=== PATIENT | female | born 1970 | race Caucasian/White ===

== ENCOUNTER 2018-05-29 09:37 | Outpatient (REF) | payer BC, SELFPAY ==
--- NOTE | 2018-05-29 09:00 | PAPFT_PTH ---
PATIENT: ALAN BASHIR LOC: [facility] U#:[id number] AGE/SX: 47/F ROOM: RE05/29/[address]: JORGE Olivera : 1970 BED: DIS: 05/29/2018 SPEC #: [id number] RECD: 05/29/18 12:50 STATUS: MILANA ZUNIGA #: [id number] MARLENE: 05/29/18 09:[address]: Lauren Leung DEPT: [facility] Cytology RECD BY: Mabel Campuzano Tissues: 1 - CX/ENDOCX FOR PAP SMEARS Procedures: PAP THIN PREP/UVM Screening HPV DNA PROBE Comments: [id number]
== END 2018-05-29 09:57 ==
LOC: LBN 09:37
PROVIDERS: PCP Nurse Practitioner Family; Visit Provider Nurse Practitioner Family
DX: Z12.4 Encounter for screening for malignant neoplasm of cervix (principal); Z11.51 Encounter for screening for human papillomavirus (HPV)
CPT/HCPCS: 88142; 87624

== ENCOUNTER 2018-06-11 00:42 | Outpatient (CLI) | payer BC, SELFPAY ==
--- NOTE | 2018-06-11 09:24 | DI.MAMMO_ITS ---
SYMPTOM/DIAGNOSIS: BREAST CANCER SCREENING Z12.31 MAMMOGRAMS: Mammograms were interpreted according to the usual protocol including computer analysis with CAD system, tomosynthesis and C view imaging. Comparison with prior examinations. Breast density B. No suspicious microcalcifications are seen. No suspicious masses are seen in the right breast. There is asymmetric breast tissue in the outer left breast seen on the craniocaudad view. This area appears more prominent compared to the prior examination. Spot compression views are requested. Ultrasound may be indicated at that time. IMPRESSION: Additional views of the left breast as described above. Category 0 , B MQSA ASSESSMENT OF FINDINGS: Incomplete: Needs additional imaging evaluation. Category 0. Patient will receive a letter notifying them of these results. BI-RADS category B. There are scattered areas of fibroglandular density.
== END 2018-06-11 01:02 ==
PROVIDERS: PCP Nurse Practitioner Family; Visit Provider Nurse Practitioner Family
DX: Z12.31 Encounter for screening mammogram for malignant neoplasm of breast (principal); R92.8 Other abnormal and inconclusive findings on diagnostic imaging of breast
CPT/HCPCS: 77063; 77067

== ENCOUNTER 2018-06-24 00:22 | Outpatient (CLI) | payer BC, SELFPAY ==
--- NOTE | 2018-06-24 13:52 | DI.COMBO_ITS ---
SYMPTOMS/DIAGNOSIS: F/U MAMMO, ASYMMETRIC BREAST TISSUE LT ADDITIONAL VIEWS OF THE LEFT BREAST AND LEFT BREAST ULTRASOUND: Additional images are interpreted according to the usual protocol including tomosynthesis and 2D imaging. Additional views of the left breast again show an asymmetric density in the outer left breast. No associated microcalcifications are seen. No architectural distortion is appreciated. A left breast ultrasound was performed. The upper outer and lower outer quadrants of the left breast were evaluated sonographically. No cystic or solid masses are seen. IMPRESSION: No definite evidence for malignancy. At this time a six month follow up left mammogram is requested for re-evaluation. Category 3. Breast density B. The findings were discussed with the patient on the date of the examination. SA ASSESSMENT OF FINDINGS: Probably benign. Six month follow-up recommended. Category 3. Patient will receive a letter notifying them of these results. BI-RADS category B. There are scattered areas of fibroglandular density.
== END 2018-06-24 00:42 ==
PROVIDERS: PCP Nurse Practitioner Family; Visit Provider Nurse Practitioner Family
DX: Z12.31 Encounter for screening mammogram for malignant neoplasm of breast (principal); R92.8 Other abnormal and inconclusive findings on diagnostic imaging of breast; N60.82 Other benign mammary dysplasias of left breast
CPT/HCPCS: 76642; 77063; 77067

== ENCOUNTER 2018-12-24 00:43 | Outpatient (CLI) | payer BC, SELFPAY ==
--- NOTE | 2018-12-24 09:31 | DI.MAMMO_ITS ---
SYMPTOM/DIAGNOSIS: DIAGNOSTIC, 6 MO F/U LEFT MAMMOGRAM: Mammograms were interpreted according to the usual protocol including computer analysis with CAD system, tomosynthesis and C view imaging. Comparison is made with prior examinations. Breast density, category B. The breast tissue in the upper outer quadrant of the left breast appears stable. The skin and axilla are unremarkable. IMPRESSION: No evidence for malignancy. A 6 month follow up mammogram is requested for re-evaluation. Category 3. MQSA ASSESSMENT OF FINDINGS: Probably benign. Six month follow-up recommended. Category 3. Patient will receive a letter notifying them of these results. BI-RADS category B. There are scattered areas of fibroglandular density. The findings were discussed with the patient on the date of the examination. MQSA ASSESSMENT OF FINDINGS: Probably benign. Six month follow-up recommended. Category 3. Patient will receive a letter notifying them of these results. BI-RADS category B. There are scattered areas of fibroglandular density.
== END 2018-12-24 01:03 ==
PROVIDERS: PCP Nurse Practitioner Family; Visit Provider Nurse Practitioner Family
DX: Z12.31 Encounter for screening mammogram for malignant neoplasm of breast (principal); R92.8 Other abnormal and inconclusive findings on diagnostic imaging of breast; N64.59 Other signs and symptoms in breast
CPT/HCPCS: 77061; 77065; G0279

== ENCOUNTER 2019-03-10 09:27 | Outpatient (CLI) | payer BC, SELFPAY ==
--- NOTE | 2019-03-10 09:25 | DI.RAD_ITS ---
SYMPTOM/DIAGNOSIS: SHOULDER PAIN RIGHT SHOULDER: There is some spurring at the undersurface of the acromion. The glenohumeral joint is well maintained. No tendon or joint space calcifications are seen. The humeral head is normally positioned. IMPRESSION: Spurring at the undersurface of the acromion.
== END 2019-03-10 09:47 ==
PROVIDERS: PCP Nurse Practitioner Family; Visit Provider Student in an Organized Health Care Education/Training Program
DX: M25.511 Pain in right shoulder (principal); M75.81 Other shoulder lesions, right shoulder
CPT/HCPCS: 73030

== ENCOUNTER 2019-04-01 01:21 | Outpatient (CLI) | payer BC, SELFPAY ==
--- NOTE | 2019-04-01 09:07 | DI.MRI_ITS ---
SYMPTOM/DIAGNOSIS: RT SHOULDER PAIN, WEAKNESS, M25.511 RIGHT SHOULDER MRI: Routine noncontrast examination was performed. There is thickening and hyperintense signal seen on the T 2 weighed images within the supraspinatus tendon. There is also thickening and intermediate signal seen in the subscapularis tendon. The teres minor and infraspinatus tendons are unremarkable. The muscles show normal signal and size. No significant muscular fatty atrophy is seen. The biceps tendon has a normal appearance and location. The glenoid labrum is grossly unremarkable on this noncontrast examination. The articular cartilage at the glenohumeral joint appears well maintained. There are mild hypertrophic changes seen at the acromioclavicular joint suggestive of osteoarthritis. Marrow signal is otherwise within normal limits. No evidence of an occult fracture or avascular necrosis is seen. IMPRESSION: 1. Thickening and increased signal seen in the supraspinatus tendon. This may represent tendinosis or partial tear. 2. Thickening and intermediate signal seen in the subscapularis tendon suggesting degeneration/tendinosis.
== END 2019-04-01 01:41 ==
PROVIDERS: Visit Provider Student in an Organized Health Care Education/Training Program
DX: M25.511 Pain in right shoulder (principal); M75.81 Other shoulder lesions, right shoulder; M19.011 Primary osteoarthritis, right shoulder
CPT/HCPCS: 73221

== ENCOUNTER 2019-04-10 01:24 | Outpatient (CLI) | payer BC, SELFPAY ==
--- NOTE | 2019-04-10 08:04 | DI.RAD_ITS ---
SYMPTOM/DIAGNOSIS: BICEPS TENDINITIS RIGHT SHOULDER M75.21 FLUOROSCOPY RIGHT SHOULDER: Fluoroscopy Time: unknown Fluoroscopy was provided for Dr. Costa for guidance with right shoulder injection. The hard copy images shows a needle projecting over the humeral head and contrast injection in to the joint spce. Please see procedure note for details.
[2019-04-10] MEDS: Omnipaque 300 MG/ML 10 ML BTL IJ (10:00)
[2019-04-10] MEDS: Bupivacaine 0.5% Pres-Free 10 ML VIAL 5 ML IJ (10:01)
[2019-04-10] MEDS: methylPREDNISolone ACETATE 80 MG/ML VIAL IM (10:02)
--- NOTE | 2019-04-11 08:45 | OPPNE_ITS ---
Date of service: 04/10/19 Time of Service: 09:45 Procedure Note Date of procedure: 04/10/19 Procedure: Right Shoulder Injection Surgeon/Proceduralist/Physician: Ashwin Costa Procedure Diagnosis: Right Biceps Tendinitis, Right Partial RTC Tear Procedure Indications: Noemí has had persistent pain of the RIGHT shoulder. Noninvasive measures have been tried. To serve as both diagnostic and therapeutic, an injection under fluoroscopy was recommended. I had discussed the risks of the procedure and the patient elected to proceed. Procedure Description: Noemí was greeted in the flouroscopy room. The correct side was identified and the consent was reviewed with the patient and signed. The patient was then placed in the supine position on the fluoroscopy table. The RIGHT shoulder was then prepped with Chloraprep. The anterior injection starting point was identiifed by bony landmarks and fluoroscopy. The skin and soft tissue in the tract of the injection was anesthetized with 1% Lidocaine. A spinal needle was then inserted deep into the shoulder joint at the level of the recess between the glenoid and superior hum eral head. A small amount of Omnipaque solution was injected to confirm intraarticular placement. Once confirmed, the shoulder was injected with 4cc of 0.5% Bupivicaine and 80mg of Depo-Medrol. A bandaid was placed on the injection site. The patient tolerated the procedure well and noted improvement in pre- injection pain.
== END 2019-04-10 01:44 ==
PROVIDERS: PCP Nurse Practitioner Family; Visit Provider Student in an Organized Health Care Education/Training Program
DX: M75.21 Bicipital tendinitis, right shoulder (principal)
CPT/HCPCS: 20610; 77002; J1040

== ENCOUNTER 2019-05-30 07:00 | Outpatient (CLI) | payer BC, SELFPAY ==
[2019-05-30 13:00] LABS: Hemoglobin A1C 5.2 % (4.5-6.2)
[2019-05-30 13:16] LABS: ALT 36 U/L (14-59); AST 22 U/L (15-37); Albumin 4.4 g/dL (3.4-5.0); Alkaline Phosphatase 53 U/L (46-116); Anion Gap 8.8 mmol/L (3-11); BUN 16 mg/dL (7-18); Bilirubin, Total 0.4 mg/dL (0.2-1.0); CO2 30.2 mmol/L (21.0-32.0); CREATININE 0.78 mg/dL (0.55-1.02); Calcium 9.3 mg/dL (8.5-10.1); Calculated LDL 106 mg/dL; Chloride 99 mmol/L (98-107); Cholesterol 204 mg/dL (50-200); Glucose 89 mg/dL (70-100); HDL Cholesterol 40 mg/dL (40-60); Potassium 4.1 mmol/L (3.5-5.1); Sodium 138 mmol/L (136-145); Total Protein 7.8 g/dL (6.4-8.2); Triglyceride 292 mg/dL (30-150)
== END 2019-05-30 07:20 ==
PROVIDERS: PCP Nurse Practitioner Family; Visit Provider Nurse Practitioner Family
DX: E78.5 Hyperlipidemia, unspecified (principal)
CPT/HCPCS: 36415; 80053; 80061; 83036

== ENCOUNTER 2019-06-05 00:55 | Outpatient (CLI) | payer BC, SELFPAY ==
--- NOTE | 2019-06-05 12:55 | DI.US_ITS ---
EXAM: US PELVIS AND TRANSVAGINAL CLINICAL HISTORY: postmenopausal bleeding, N95.0. TECHNIQUE: Ultrasound performed using standard protocol. PELVIC ULTRASOUND WAS PERFORMED TRANSABDOMINALLY AND TRANSVAGINALLY. COMPARISON: NONE FINDINGS: PLEASE SEE THE ACCOMPANYING DATA SHEET FOR MEASUREMENTS OF PELVIC STRUCTURES. THE PATIENT IS REPORTE DLY POSTMENOPAUSAL. THERE IS HETEROGENEOUS APPEARANCE OF THE ENDOMETRIAL STRIPE, WHICH MEASURES UP T O 38 MILLIMETERS IN THICKNESS. NO INCREASED VASCULAR FLOW NOTED. THERE ARE MULTIPLE SMALL CYSTIC SP ACES WITHIN THE ENDOMETRIUM. OTHERWISE UTERUS IS UNREMARKABLE IN APPEARANCE. THERE ARE BILATERAL SIMPLE OVARIAN CYSTS, MEASURING ABOUT 44 MILLIMETERS IN DIAMETER BILATERALLY. OT HERWISE OVARIES ARE UNREMARKABLE IN APPEARANCE. NO FREE FLUID IDENTIFIED IN THE CUL-DE-SAC. LIMITED SCANNING OF THE KIDNEYS IS UNREMARKABLE. IMPRESSION: MARKEDLY THICKENED HETEROGENEOUS ENDOMETRIAL STRIPE, NEOPLASTIC DISEASE NOT EXCLUDED AND APPROPRIATE CLINICAL FOLLOW-UP AND TISSUE SAMPLING SHOULD BE CONSIDERED.
== END 2019-06-05 01:15 ==
PROVIDERS: PCP Nurse Practitioner Family; Visit Provider Nurse Practitioner Family
DX: N95.0 Postmenopausal bleeding (principal); R93.89 Abnormal findings on diagnostic imaging of other specified body structures
CPT/HCPCS: 76830; 76856

== ENCOUNTER 2019-12-18 10:07 | Outpatient (CLI) | payer BC, SELFPAY ==
[2019-12-19 10:43] LABS: CA 125 5 U/mL (<30)
== END 2019-12-18 10:27 ==
PROVIDERS: PCP Nurse Practitioner Family; Visit Provider Nurse Practitioner Family
DX: N83.209 Unspecified ovarian cyst, unspecified side (principal)
CPT/HCPCS: 36415; 86304